=== PATIENT | female | born 1980 ===

== ENCOUNTER 2016-12-20 12:59 | Emergency (ER) | payer MEDICAID, SELFPAY ==
[2016-12-20 13:29] VITALS: BMI 34.3
--- NOTE | 2016-12-20 14:00 | OBDCSUM ---
Datetime: 12/20/2016 13:55 Discharged to, Provider: Home Follow up at, Provider: Giovani Minaya Disch Instr Activity: Normal activity Disch Instr Diet: Regular Discharge Instructions, Provider: Routine instructions given Discharge Time: 12/20/2016 13:55 Follow up in weeks, Provider: wilfredo hernandez as scheduled Disch Referrals: None Discharge Diagnosis Prov Other: +FM
--- NOTE | 2016-12-20 14:53 | OBHP ---
Datetime: 12/20/2016 13:54 IP Adm Impression: Term, intrauterine ; No Active Labor IP Admit Plan: Discharge home Admit Comment, IP Provider: 36yo IUP at 40w c/o decreased FM this morning. Since being plac e on EFM +FM. No CTX. No VB. No SROM. She has sono scheduled for tmrw at [facility]. PNC: [facility] - cleft lip. PMH: PSH NKA PSoH POBGYNH: no STD; x 1 A: IUP at 40w +FM reactive NST PLAN: Labor instructions (kyrgyz) Sono tmrw f/u [facility] this thurs as scheduled Pelvic Type - PN: Not Done Extremities - PN: Normal Abdomen - PN: Normal Back - PN: Normal Breast - PN: Not Done Lungs - PN: Normal Heart - PN: Normal Thyroid - PN: Normal Neurologic - PN: Normal HEENT - PN: Normal General - PN: Normal FHR - Baseline A Provider: 140 Contraction Comments Provider: 0 Comments, ACOG Physical Exam: ROS: General: no fatigue no weakness HEENT: no SYED; no visual dist CV: no CP; no palpitaions Resp: no OSb; no cough GI: No N/V/D : No F/U/D MS: no joint pain Pool Provider: Negative IP Hx Assessment: The History has been Reviewed and is Current EGA AdmitDate IP: 39.6 IP Chief Complaint: Decreased movement NICHD Variability Prov Fetus A: Moderate 6-25bpm NICHD Accel Fetus A IP Provider: 15X15 FHR Category Provider Fetus A: Category I NICHD Decel Fetus A IP Provider: None Genitourinary Exam: Normal DTRs - PN: Normal
== END 2016-12-20 13:57 | disposition home or self-care (01) ==
LOC: H.EROB2 12:59
DX: O47.1 False labor at or after 37 completed weeks of gestation (principal); O48.0 Post-term pregnancy; Z3A.40 40 weeks gestation of pregnancy

== ENCOUNTER 2016-12-21 06:07 | Inpatient (IN) | payer MEDICAID, SELFPAY ==
[2016-12-21 06:56] VITALS: BMI 37.4
[2016-12-21] MEDS: Lactated Ringer's 1,000 ML IV SCH ×2 (07:00→08:00)
[2016-12-21 07:16] LABS: HEMATOCRIT 38.5 % (34.0-47.0); MEAN CELL VOLUME 78.1 fl (81.0-99.0); MEAN CORPUSCULAR HEMOGLOBIN 25.7 pg (27.0-31.0); MEAN CORPUSCULAR HGB CONC 32.9 g/dL (33.0-37.0); RED CELL DISTRIBUTION WIDTH 16.1 % (11.5-14.5); WHITE BLOOD COUNT 9.2 K/uL (4.8-10.8)
[2016-12-21] MEDS ORDERED: Fentanyl/Bupivacaine HCl 250 ML EPI ONE (07:19)
[2016-12-21] MEDS ORDERED: Bupivacaine HCl 0.25% PF (10 ml) Inj ONE (07:19)
--- NOTE | 2016-12-21 07:25 | OBADHP ---
Datetime: 12/21/2016 07:00 Admit Comment, IP Provider: IUP at 40w c/o ctx since 2am. No SROM. no VB. +FM. She had PNC at [facility]/Dr Calvert chart reviewed followed for cleft lip/palate - declined amnio GBS neg PMH: obese PSH denies NKA PSoH denies smopking EOTH drugs POBGYNH: x 1 (7lb) A: IUP at 40w/active labor Hx Cleft Lip/palate obese P: Admit IVF and labs pain managemnt, labor, delivery and discussed. Nursery was notified Pelvic Type - PN: Adequate Extremities - PN: Normal Abdomen - PN: Normal Back - PN: Normal Breast - PN: Not Done Lungs - PN: Normal Heart - PN: Normal Thyroid - PN: Normal Neurologic - PN: Normal HEENT - PN: Normal General - PN: Abnormal Presentation-Admit: Vertex FHR - Baseline A Provider: 150 Membranes, Provider: Intact Comments, ACOG Physical Exam: ROS: General: no fatigue no weakness HEENT: no SYED; no visual dist CV: no CP; no palpitaions Resp: no OSb; no cough GI: No N/V/D : No F/U/D MS: no joint pain Pool Provider: Negative IP Hx Assessment: The History has been Reviewed and is Current IP Chief Complaint: Uterine contractions NICHD Variability Prov Fetus A: Moderate 6-25bpm NICHD Accel Fetus A IP Provider: 15X15 FHR Category Provider Fetus A: Category I NICHD Decel Fetus A IP Provider: None Dilatation, Provider: 5 Effacement, Provider: 75 Station, Provider: -2 Genitourinary Exam: Normal DTRs - PN: Normal EGA AdmitDate IP: 40.0 IP Adm Impression: Term, intrauterine ; Active labor IP Admit Plan: Admit to unit; Initiate labor protocol Datetime: 12/20/2016 13:54 Contraction Comments Provider: 0
[2016-12-21] MEDS ORDERED: Oxytocin 30 units/LR 500ML 30 U/500 ML BAG IV ONE ×2 (07:26→14:10)
[2016-12-21] MEDS ORDERED: Lidocaine 1% Inj (20ml) ONE (07:28)
[2016-12-21 07:54] VITALS: BP 147/71; PULSE 116; RESP 19; TEMP 99.1; O2SAT 97
[2016-12-21] MEDS ORDERED: Lactated Ringer's 1,000 ML IV SCH ×2 (08:40→09:00)
--- NOTE | 2016-12-21 14:52 | OBDS ---
MATERNAL INFORMATION Provider Comments: Delivered live baby boy at 2:04 PM. He was bulb suctioned on the perineum and tra nsferred to maternal chest. The cord was clamped and cut and 3 vessels were noted cord blood was obta ined and sent to the lab. Placenta was delivered at 2:09 PM intact. Estimated blood loss was 250 mL. A first-degree vaginal laceration was repaired with 2-0 repeat. The mother tolerated the procedure we ll and the baby went to level II with Apgars of 9 and 9 weighing 3840 g. The pediatricians were in at tendance the patient was known to have a history of cleft left and palate. LABOR SUMMARY EDC: 12/21/2016 00:00 No. Babies in Womb: 1 LABOR INFORMATION Group B Beta Strep: Negative MEMBRANES Membranes Rupture Method: Artificial Rupture of Membranes: 12/21/2016 08:30 Amniotic Fluid Color: Light Meconium Amniotic Fluid Amount: Small Amniotic Fluid Odor: Normal VAGINAL DELIVERY Episiotomy: None Laceration Extension: First Degree Laceration Type: Vaginal Laceration Repair Note: repaired with 2.0 rapide Sponge Count Correct: Yes Sharps Count Correct: Yes
[2016-12-21] MEDS ORDERED: Oxycodone/Acetaminophen 5/325 mg Tab PO PRN ×2 (16:20)
[2016-12-22 23:44] LABS: HEMATOCRIT 33.6 % (34.0-47.0); MEAN CELL VOLUME 78.4 fl (81.0-99.0); MEAN CORPUSCULAR HEMOGLOBIN 25.6 pg (27.0-31.0); MEAN CORPUSCULAR HGB CONC 32.6 g/dL (33.0-37.0); RED CELL DISTRIBUTION WIDTH 16.4 % (11.5-14.5); WHITE BLOOD COUNT 8.4 K/uL (4.8-10.8)
--- NOTE | 2016-12-23 09:06 | OBDCSUM ---
Datetime: 12/23/2016 05:39 Discharged to, Provider: Home Follow up at, Provider: [facility]BGY[facility] Disch Instr Activity: Normal activity Disch Instr Diet: Regular Discharge Instructions, Provider: Routine instructions given Discharge Diagnosis, Provider: Term Delivered Discharge Time: 12/23/2016 09:00 Follow up in weeks, Provider: 6 weeks Disch Referrals: None Disch Activity Restrictions: No sexual activity; Nothing in vagina - [place], tampons, douche Discharge Comment, Provider: 36 y/o s/p on 12/21/16@ 14:04 Delivered baby boy on 12/21/16 @14:04 Weight: 8lb7oz 9/9 , w/ cleft lip has been transfered t o [facility] Patient doing well, stable for discharge. Prescription given for pain Encourage PNV 1 tab PO once daily Ibuprofen 600 mg 1 tab PO Q6h prn for mild to moderate pain Ambulate w/ caution, nothing in vagina, no heavy lifting, if excessive bleeding or fever without r elief from Ibuprofen go to ED F/U with OBGYN in 6 weeks OB Hospitalist oncjaleesa...Pt seen on rounds 8am. Agree with PGY1 note MAHNDO discharge home Contraception after Delivery: Undecided
--- NOTE | 2016-12-23 09:06 | OBPPN ---
Datetime: 12/23/2016 05:37 PP Pain Prov: Within normal limits PP Nausea Prov: Denies PP Flatus Prov: Yes PP BM Prov: No PP Heart Prov: Normal PP Lungs Prov: Normal PP Abdomen/Uterus Prov: Normal PP Lochia Prov: Normal PP Extremities Prov: Normal PP C/S Incision Prov: Not Applicable PP Progress Prov: Not Applicable PP Comments Phys Exam Prov: Fundus: Firm and below umbilicus PP Impression Prov: Normal progression PP Plan Prov: Continue present management; Discharge PP Progress Note Prov: 36 yo , seen and examined bedside. Patient denies any overnight events. She reports mild pelvic pain controlled w/ pain meds. OOB/Ambulating w/o dizziness. Tolerating PO diet well. Lochia is less than menses in volume. Voiding freely w/ no blood noted. Reports passin g gas but has not had a bowl movement . Denies fevers, chills, n/v/d, CP/SOB, lightheadedness and ketty f pain. Assessment: 36 yo, s/p on 12/21/16 @ 14:04 tolerating pain w/ medication, tolerating or al intake, adequate urine output, doing well on PPD#2 Plan: - Patient stable to go home - Mild/mod pain PRN: Ibuprofen 600mg PO Q6 PRN pain -Encourage breast feeding and ambulation Jill Camp M.D. OB Hospitalist oncall...Pt seen on rounds 8am. Agree with PGY1 note MAHNDO discharge home IP PP Procedures: None Vital Signs Provider PP: Reviewed; Within Normal Limits
== END 2016-12-23 12:40 | disposition home or self-care (01) | DRG 373 ==
LOC: H.EROB2 06:07 → H.L&D 06:56 → H.OB/GYN 22:46
PROVIDERS: ADMIT Obstetrics & Gynecology; ATTEND Obstetrics & Gynecology
PROC: 0HQ9XZZ Repair Perineum Skin, External Approach (ICD-10-PCS; principal; 2016-12-21)
PROC: 10E0XZZ Delivery of Products of Conception, External Approach (ICD-10-PCS; 2016-12-21)
PROC: 4A1HXCZ Monitoring of Products of Conception, Cardiac Rate, External Approach (ICD-10-PCS; 2016-12-21)
DX: O71.4 Obstetric high vaginal laceration alone (principal); Z37.0 Single live birth; Z3A.39 39 weeks gestation of pregnancy

== ENCOUNTER 2016-12-27 20:43 | Inpatient (IN) | payer MEDICAID, SELFPAY ==
[2016-12-27 20:43] VITALS: BMI 37.4
[2016-12-27] MEDS ORDERED: Labetalol 5mg/ml (4ml) ONE ×2 (22:01→23:32)
[2016-12-27 22:07] LABS: BASO # 0.1 K/uL (0.0-0.2); BASO % 0.8 % (0.0-2.0); EOS # 0.2 K/uL (0.0-0.7); EOS % 2.4 % (0.0-4.0); HEMATOCRIT 38.8 % (34.0-47.0); LYMPH # 2.9 K/uL (1.0-4.3); LYMPH % 36.8 % (20.0-40.0); MEAN CELL VOLUME 79.5 fl (81.0-99.0); MEAN CORPUSCULAR HEMOGLOBIN 25.5 pg (27.0-31.0); MEAN CORPUSCULAR HGB CONC 32.1 g/dL (33.0-37.0); MEAN PLATELET VOLUME 7.7 fl (7.2-11.7); MONO # 0.6 K/uL (0.0-0.8); MONO % 7.4 % (0.0-10.0); NEUT # 4.2 K/uL (1.8-7.0); NEUT % 52.6 % (50.0-75.0); NRBC % 0.2 % (0.0-0.0); RED CELL DISTRIBUTION WIDTH 16.4 % (11.5-14.5)
[2016-12-27] MEDS: Labetalol 5mg/ml (4ml) IVP STA ×2 (22:10→22:26)
[2016-12-27 22:20] LABS: ALB/GLOB RATIO 1.1 (1.0-2.1); ALKALINE PHOSPHATASE 142 U/L (38-126); ALT/SGPT 33 U/L (9-52); AST/SGOT 22 U/L (14-36); BILIRUBIN,TOTAL 0.3 mg/dl (0.2-1.3); BLOOD UREA NITROGEN 18 mg/dl (7-17); CARBON DIOXIDE 23 mmol/L (22-30); CHLORIDE 107 mmol/L (98-107); GFR AFRICAN-AMERICAN > 60; GLUCOSE,RANDOM 87 mg/dL (65-105); SODIUM 140 mmol/l (132-148); TOTAL PROTEIN 7.5 G/DL (6.3-8.2)
[2016-12-27] MEDS ORDERED: Labetalol 5 mg/ml Inj 20ML IVP STA (22:25)
--- NOTE | 2016-12-27 22:27 | ED PDOC ---
HPI: Hypertension/Hypotension Time Seen by Provider: 12/27/16 21:39 Chief Complaint (Nursing): High Blood Pressure Chief Complaint (Provider): headache, high blood pressure History Per: Patient History/Exam Limitations: no limitations Severity: Moderate Exacerbating Factor(s): Pos: None Additional Complaint(s): 36yo female now approx 7 days post s/p 40wks, states uncomplicated but last 2 weeks had elevated BP no meds initiated. Baby now at [facility] for cleft lip. Last 2 days has had worsening headache mostly right sided, edema of b/l feet. Also notes mild chest discomfort. Denies SOB, orthopnea, bruising or significant vag bleeding. Normal urination. Went to PMD Dr Luis today for headache and told BP was elevated to come to ER. States she did receive an epidural but the headache is non-positional. First unremarkable. Past Medical History Reviewed: Historical Data, Nursing Documentation, Vital Signs Vital Signs: Last Vital Signs Temp 98.0 F 12/27/16 21:11 Pulse 81 12/27/16 21:11 Resp 16 12/27/16 21:11 BP 151/108 H 12/27/16 21:11 Pulse Ox 100 12/27/16 21:11 - Medical History PMH: No Chronic Diseases - Surgical History Surgical History: No Surg Hx - Family History Family History: States: Unknown Family Hx - Living Arrangements Living Arrangements: With Family - Social History Current smoker - smoking cessation education provided: No - Home Medications Home Medications: Ambulatory Orders Medication Instructions Recorded Vit No.126/Iron/Folic 1 tab PO DAILY MDD 1 tab 12/21/16 [Prenavite] Ibuprofen [Motrin] 600 mg PO Q6 PRN #30 tab 12/22/16 - Allergies Allergies/Adverse Reactions: Allergies Allergy/AdvReac Type Severity Reaction Status Date / Time No Known Allergies Allergy Verified 12/27/16 21:11 Review of Systems Constitutional: Negative for: Fever, Chills Cardiovascular: Positive for: Chest Pain, Palpitations. Negative for: Orthopnea Respiratory: Negative for: Cough, Shortness of Breath Gastrointestinal: Negative for: Nausea, Vomiting Genitourinary Female: Positive for: Vaginal Bleeding, Pelvic Pain. Negative for : Dysuria, Frequency Musculoskeletal: Negative for: Neck Pain, Shoulder Pain Skin: Negative for: Rash, Lesions Neurological: Positive for: Headache, Dizziness. Negative for: Weakness, Numbness Physical Exam - Reviewed Nursing Documentation Reviewed: Yes Vital Signs Reviewed: Yes - Physical Exam Appears: Positive for: Well, Non-toxic, No Acute Distress Head Exam: Positive for: ATRAUMATIC, NORMAL INSPECTION, NORMOCEPHALIC Skin: Positive for: Normal Color, Warm, DRY Eye Exam: Positive for: EOMI, Normal appearance, PERRL ENT: Positive for: Normal ENT Inspection Neck: Positive for: Normal, Painless ROM Cardiovascular/Chest: Positive for: Regular Rate, Rhythm Respiratory: Positive for: CNT, Normal Breath Sounds Gastrointestinal/Abdominal: Positive for: Bowel Sounds, Soft. Negative for: Tenderness, Guarding Back: Positive for: Normal Inspection Extremity: Positive for: Normal ROM Neurologic/Psych: Positive for: Alert, Oriented. Negative for: Motor/Sensory Deficits - Laboratory Results Result Diagrams: 12/27/16 21:55 12/27/16 21:55 - ECG O2 Sat by Pulse Oximetry: 100 Medical Decision Making Medical Decision Making: Workup initiated for preeclampsia/ hypertensive urgency. Labetolol 10mg ordered IV. Labs, CT brain ordered. D.w OB educational aide Dr Medrano, if protein in urine start mag sulfate. Admit hospitalist , [employer]NA[employer] to consult.
[2016-12-27] MEDS ORDERED: Labetalol 5mg/ml (4ml) IVP STA (22:35)
--- NOTE | 2016-12-27 23:06 | CT ---
EXAM: CT Head Without Intravenous Contrast CLINICAL HISTORY: 36 years old, female; Pain; Headache; Headache not specified; Additional info: / htn/ headache TECHNIQUE: Axial computed tomography images of the head/brain without intravenous contrast. This CT exam was performed using one or more of the following dose reduction techniques: automated exposure control, adjustment of the mA and/or kV according to patient size, and/or use of iterative reconstruction technique. Coronal and sagittal reformatted images were created and reviewed. COMPARISON: No relevant prior studies available. FINDINGS: Brain: No intracranial hemorrhage. No mass. No definite edema. Ventricles: No hydrocephalus. Bones/joints: No acute fracture. Soft tissues: Unremarkable. Sinuses: No acute sinusitis. Mastoid air cells: No mastoid effusion. Orbits: Unremarkable as visualized. IMPRESSION: 1. No acute intracranial abnormality. 2. Incidental/non-acute findings are described above.
[2016-12-27 23:52] LABS: RBC URINE 158 /hpf (0-3); URINE BACTERIA RARE (<OCC); URINE BILIRUBIN NEGATIVE (NEGATIVE); URINE BLOOD LARGE (NEGATIVE); URINE COLOR YELLOW (YELLOW); URINE GLUCOSE (UA) NEG (Normal); URINE KETONE NEGATIVE (NEGATIVE); URINE LEUKOCYTE ESTERASE SMALL Leu/uL (Negative); URINE PROTEIN NEGATIVE (NEGATIVE); WBC URINE 4 /hpf (0-5)
[2016-12-28] MEDS ORDERED: Labetalol 5mg/ml (4ml) IVP STA (00:05)
--- NOTE | 2016-12-28 00:45 | CP.PCM.HP ---
History of Present Illness - History of Present Illness History of Present Illness: Chief Complaint: headache, high blood pressure HPI: 36 year old female , gave about a week ago here at [facility] without complications. Patient was at doctors office with and her BP was found to be elevated. She was instructed to come to ER. This was also associated with a moderate R sided headache sharp and throbbing in nature, nonradiating. Patient was given Labetalol in ER x4, will start PO. ER called OBGYN, per chart review, no protein in urine, no Mg at this time. Discussed with ER physician. Other than BP 155/100, vitals stable, she is in no acute distress. ROS: Per HPI, all other systems reviewed negative by me PMD: Dr. Luis PMH: none PSH: denies FH: denies SH: denies tobacco, etoh, ivdu ALLERGIES: NKDA MEDICATIONS: reviewed and as below Surrogate Decision Maker: in chart GENERAL APPEARANCE: Well developed, well nourished, alert and cooperative, and appears to be in no acute distress. HEENT: normocephalic, atraumatic PERRL, EOMI. Vision is grossly intact. External auditory canals clear, hearing grossly intact. No nasal discharge. Oral cavity and pharynx normal. No inflammation, swelling, exudate, or lesions. NECK: Neck supple, non-tender without lymphadenopathy, masses or thyromegaly. CARDIAC: Normal S1 and S2. No S3, S4 or murmurs. Rhythm is regular. LUNGS: Clear to auscultation and percussion without rales, rhonchi, wheezing or diminished breath sounds. ABDOMEN: Positive bowel sounds. Soft, nondistended, nontender. No guarding or rebound. No masses. BACK: Examination of the spine reveals no spinal deformity, symmetry of spinal muscles, EXTREMITIES: No significant deformity or joint abnormality. No edema. NEUROLOGICAL: Strength and sensation symmetric and intact throughout. Reflexes 2 + throughout. SKIN: Skin normal color, texture and turgor with no lesions or eruptions. PSYCHIATRIC: The patient was oriented to person, place, and time. Normal affect. LABS: 12/27/16 21:55 12/27/16 21:[address] head unremarkable EKG NSR, no acute infarct or ischemia appreciated ASSESSMENT AND PLAN 36 year old female , gave about a week ago here at [facility] without complications. Patient was at doctors office with and her BP was found to be elevated. She was instructed to come to ER. This was also associated with a moderate R sided headache sharp and throbbing in nature, nonradiating. Patient was given Labetalol in ERx4, will start PO. ER called OBGYN, per chart review, no protein in urine, no Mg at this time. Discussed with ER physician. Other than BP 155/100, vitals stable, she is in no acute distress. Hypertensive Urgency OBGYN on consult, unlikely preeclampsia Upon reevaluation BP 153/97 Start Labetalol 200 mg PO q12, increase daily as necessary PRN Labetalol 10 mg IV for SBP >160 monitor BP DVT prophylaxis SCDs Present on Admission - Present on Admission Any Indicators Present on Admission: No Past Patient History - Past Social History Smoking Status: Never Smoked - PSYCHIATRIC Hx Substance Use: No - SURGICAL HISTORY Hx Surgeries: No - ANESTHESIA Hx Anesthesia: No Meds Allergies/Adverse Reactions: Allergies Allergy/AdvReac Type Severity Reaction Status Date / Time No Known Allergies Allergy Verified 12/27/16 21:11 Results - Vital Signs Recent Vital Signs: Last Vital Signs Temp 98.0 F 12/27/16 21:11 Pulse 74 12/27/16 22:05 Resp 16 12/27/16 21:11 BP 153/97 H 12/27/16 23:39 Pulse Ox 100 12/27/16 22:57 - Labs Result Diagrams: 12/27/16 21:55 12/27/16 21:55
[2016-12-28] MEDS ORDERED: Labetalol 5 mg/ml Inj 20ML IVP PRN (00:50)
[2016-12-28] MEDS ORDERED: Labetalol 5mg/ml (4ml) IVP PRN (04:00)
--- NOTE | 2016-12-28 05:11 | CP.PCM.CON ---
<ConradoJose Mariachad - Last Filed: 12/28/16 06:52> History of Present Illness - History of Present Illness History of Present Illness: OBGYN CONSULT for Dr. Susan Medrano 36 YO F PPD8 s/p @ 40 weeks, w/ an uncomplicated was admitted last night for hypertension and headache last night. Patient states that she had increase in BP in last 2 weeks of but didn't require medication. On PPD2 on discharge she was 136/72. - Patient went to her PMD Dr. Luis yesterday for a right sided headache and b/l edema of her feet which had worsened since . She had also had vague chest pain, which was non radiating and did not worsen with excursion. Today the patient denies any chest pain currently. - Her headache is a throbbing unilateral right sided, with no blurring of vision or weakness, headache is aggravated with movement and partially relieved with rest and Tylenol. 6/10 in intensity. Denies any dizziness, nausea or vomiting. She does not associate any excess stress which has been on her mind other then her child which is at [facility] since the delivery for a repair of the cleft lip. Denies any right upper quadrant pain or any other abdominal pain. Patient did receive a epidural but her headache is non positional. Denies any h/o migraines. Denies any flashes of light or aura. - Denies any increase in vaginal bleeding. Her vaginal bleeding is scant and has been decreasing since the delivery. - Blood pressure was checked at a bedside this morning and was 132/89. CT scan of the head did not show any intracranial bleeding. PMH: none PSH: none FH: none SH: Denies tobacco, alcohol, ivdu Allergies: NKDA PMD: Dayami Luis Review of Systems - Review of Systems All systems: reviewed and no additional remarkable complaints except Past Patient History - Past Medical History & Family History Past Medical History?: No - Past Social History Smoking Status: Never Smoked - CARDIAC Hx Cardiac Disorders: No - PULMONARY Hx Respiratory Disorders: No - NEUROLOGICAL Hx Neurological Disorder: No - HEENT Hx HEENT Problems: No - RENAL Hx Chronic Kidney Disease: No - ENDOCRINE/METABOLIC Hx Endocrine Disorders: No - HEMATOLOGICAL/ONCOLOGICAL Hx Blood Disorders: No - INTEGUMENTARY Hx Dermatological Problems: No - MUSCULOSKELETAL/RHEUMATOLOGICAL Hx Musculoskeletal Disorders: No Hx Falls: No - GASTROINTESTINAL Hx Gastrointestinal Disorders: No - GENITOURINARY/GYNECOLOGICAL Hx Genitourinary Disorders: No - PSYCHIATRIC Hx Psychophysiologic Disorder: No Hx Substance Use: No - SURGICAL HISTORY Hx Surgeries: No - ANESTHESIA Hx Anesthesia: Yes Hx Anesthesia Reactions: No Meds Allergies/Adverse Reactions: Allergies Allergy/AdvReac Type Severity Reaction Status Date / Time No Known Allergies Allergy Verified 12/27/16 21:11 - Medications Medications: Current Medications Labetalol HCl (Trandate) 200 mg PO Q12 KAY Last Admin: 12/28/16 02:08 Dose: 200 mg Labetalol HCl (Trandate) 10 mg IVP Q6 PRN PRN Reason: FOR SBP > 170 Physical Exam - Constitutional Appears: No Acute Distress - Head Exam Head Exam: ATRAUMATIC, NORMAL INSPECTION, NORMOCEPHALIC Additional comments: No tenderness over frontal or maxillary sinus region. - Eye Exam Eye Exam: EOMI, Normal appearance, PERRL. absent: Nystagmus Pupil Exam: NORMAL ACCOMODATION, PERRL - ENT Exam ENT Exam: Mucous Membranes Moist - Neck Exam Neck exam: Positive for: Full Rom, Normal Inspection. Negative for: Tenderness - Respiratory Exam Respiratory Exam: Clear to Auscultation Bilateral, NORMAL BREATHING PATTERN. absent: Decreased Breath Sounds, Rales, Rhonchi - Cardiovascular Exam Cardiovascular Exam: REGULAR RHYTHM, +S1, +S2. absent: Systolic Murmur - GI/Abdominal Exam GI & Abdominal Exam: Normal Bowel Sounds, Soft - Extremities Exam Extremities exam: Positive for: pedal edema Additional comments: 1+ pedal edema over right ankle - Neurological Exam Neurological exam: Alert, CN II-XII Intact, Normal Gait, Oriented x3, Reflexes Normal - Skin Skin Exam: Normal Color, Warm Results - Vital Signs Recent Vital Signs: Last Vital Signs Temp 98.3 F 12/28/16 01:20 Pulse 70 12/28/16 02:08 Resp 18 12/28/16 01:27 BP 149/94 H 12/28/16 02:08 Pulse Ox 97 12/28/16 01:20 - Labs Result Diagrams: 12/27/16 21:55 12/27/16 21:55 Assessment & Plan - Assessment and Plan (Free Text) Assessment: 36 YO F PPD8 s/p @ 40 weeks, w/ an uncomplicated was admitted last night for hypertension and headache last night. 1) Hypertensive Urgency (Controlled) - Continue telometry - Continue medical team recommendation w/ Labetolol - Tylenol for headache PRN - Head CT: no intercranial bleeding noted. - U/A did not show increase in proteins. - Unlikely preclampsia in origin. * Case seen and discussed w/ Dr. Medrano. <Dionicio Medrano - Last Filed: 12/28/16 07:29> History of Present Illness - History of Present Illness History of Present Illness: OB Hospitalist on-call. This patient was seen and examined by me this morning on rounds. She feels less SYED since starting medications. Agree with PGY1 note. MAHNDO Meds - Medications Medications: Current Medications Labetalol HCl (Trandate) 200 mg PO Q12 KAY Last Admin: 12/28/16 02:08 Dose: 200 mg Labetalol HCl (Trandate) 10 mg IVP Q6 PRN PRN Reason: FOR SBP > 170 Results - Vital Signs Recent Vital Signs: Last Vital Signs Temp 98.1 F 12/28/16 05:00 Pulse 71 12/28/16 05:00 Resp 20 12/28/16 05:00 BP 132/89 12/28/16 05:00 Pulse Ox 99 12/28/16 05:00 - Labs Result Diagrams: 12/27/16 21:55 12/27/16 21:55
[2016-12-28 08:12] VITALS: RESP 18
--- NOTE | 2016-12-28 09:55 | CP.PCM.DIS ---
Provider - Provider Date of Admission: 12/28/16 00:09 Attending physician: Yolanda Loza DO Consults: OB consult Time Spent in preparation of Discharge (in minutes): 15 Hospital Course - Lab Results Lab Results: Most Recent Lab Values WBC 8.0 K/uL (4.8-10.8) 12/27/16 21:55 RBC 4.88 Mil/uL (3.80-5.20) 12/27/16 21:55 Hgb 12.4 g/dL (12.0-16.0) 12/27/16 21:55 Hct 38.8 % (34.0-47.0) 12/27/16 21:55 MCV 79.5 fl (81.0-99.0) L 12/27/16 21:55 MCH 25.5 pg (27.0-31.0) L 12/27/16 21:55 MCHC 32.1 g/dL (33.0-37.0) L 12/27/16 21:55 RDW 16.4 % (11.5-14.5) H 12/27/16 21:55 Plt Count 420 K/uL (130-400) H D 12/27/16 21:55 MPV 7.7 fl (7.2-11.7) 12/27/16 21:55 Neut % (Auto) 52.6 % (50.0-75.0) 12/27/16 21:55 Lymph % (Auto) 36.8 % (20.0-40.0) 12/27/16 21:55 [place] % (Auto) 7.4 % (0.0-10.0) 12/27/16 21:55 Eos % (Auto) 2.4 % (0.0-4.0) 12/27/16 21:55 Baso % (Auto) 0.8 % (0.0-2.0) 12/27/16 21:55 Neut # 4.2 K/uL (1.8-7.0) 12/27/16 21:55 Lymph # 2.9 K/uL (1.0-4.3) 12/27/16 21:55 [place] # 0.6 K/uL (0.0-0.8) 12/27/16 21:55 Eos # 0.2 K/uL (0.0-0.7) 12/27/16 21:55 Baso # 0.1 K/uL (0.0-0.2) 12/27/16 21:55 Sodium 140 mmol/l (132-148) 12/27/16 21:55 Potassium 4.0 MMOL/L (3.6-5.0) 12/27/16 21:55 Chloride 107 mmol/L (98-107) 12/27/16 21:55 Carbon Dioxide 23 mmol/L (22-30) 12/27/16 21:55 Anion Gap 15 (10-20) 12/27/16 21:55 BUN 18 mg/dl (7-17) H 12/27/16 21:55 Creatinine 0.6 mg/dL (0.7-1.2) L 12/27/16 21:55 Est GFR ( Amer) > 60 12/27/16 21:55 Est GFR (Non-Af Amer) > 60 12/27/16 21:55 Random Glucose 87 mg/dL (65-105) 12/27/16 21:55 Calcium 9.0 mg/dL (8.4-10.2) 12/27/16 21:55 Total Bilirubin 0.3 mg/dl (0.2-1.3) 12/27/16 21:55 AST 22 U/L (14-36) 12/27/16 21:55 ALT 33 U/L (9-52) 12/27/16 21:55 Alkaline Phosphatase 142 U/L (38-126) H 12/27/16 21:55 Total Protein 7.5 G/DL (6.3-8.2) 12/27/16 21:55 Albumin 4.0 g/dL (3.5-5.0) 12/27/16 21:55 Globulin 3.5 gm/dL (2.2-3.9) 12/27/16 21:55 Albumin/Globulin Ratio 1.1 (1.0-2.1) 12/27/16 21:55 Urine Color Yellow (YELLOW) 12/27/16 23:37 Urine Clarity Clear (Clear) 12/27/16 23:37 Urine pH 6.0 (5.0-8.0) 12/27/16 23:37 Ur Specific [place] 1.021 (1.003-1.030) 05/23/17 23:37 Urine Protein Negative mg/dL (NEGATIVE) 12/27/16 23:37 Urine Glucose (UA) Neg mg/dL (Normal) 12/27/16 23:37 Urine Ketones Negative mg/dL (NEGATIVE) 12/27/16 23:37 Urine Blood Large (NEGATIVE) 12/27/16 23:37 Urine Nitrate Negative (NEGATIVE) 12/27/16 23:37 Urine Bilirubin Negative (NEGATIVE) 12/27/16 23:37 Urine Urobilinogen 2.0 mg/dL (0.2-1.0) H 12/27/16 23:37 Ur Leukocyte Esterase Small [place]/uL (Negative) 12/27/16 23:37 Urine RBC (Auto) 158 /hpf (0-3) H 12/27/16 23:37 Urine Microscopic WBC 4 /hpf (0-5) 12/27/16 23:37 Ur Squamous Epith Cells 2 /hpf (0-5) 12/27/16 23:37 Urine Bacteria Rare (<OCC) 12/27/16 23:37 - Hospital Course Hospital Course: 36 year old female , gave about a week ago here at [facility] without complications. Patient was at doctors office with and her BP was found to be elevated. She was instructed to come to ER. This was also associated with a moderate R sided headache sharp and throbbing in nature, nonradiating. Patient was given Labetalol in ERx4 and started PO. OBGY was consulted and recommended observation for uncontrolled HTN. CT head showed no acute pathology and blood work up CBC and CMp were within normal parameters. She was placed under observation in telemetry and started on labetalol 200 mg po BID. Her BP better controlled with current regiment 132/ 89 and her headache resolved. Will discharge patient home wuith labetalol PO. Patient to follow up with her OB in 1 week Discharge Exam - Head Exam Head Exam: ATRAUMATIC, NORMAL INSPECTION, NORMOCEPHALIC - Eye Exam Eye Exam: EOMI, Normal appearance, PERRL Pupil Exam: NORMAL ACCOMODATION - ENT Exam ENT Exam: Mucous Membranes Moist, Normal Exam - Neck Exam Neck exam: Full Rom, Normal Inspection - Respiratory Exam Respiratory Exam: Clear to PA & Lateral, NORMAL BREATHING PATTERN. absent: Rales, Rhonchi, Wheezes - Cardiovascular Exam Cardiovascular Exam: REGULAR RHYTHM, RRR, +S1, +S2. absent: JVD - GI/Abdominal Exam GI & Abdominal Exam: Normal Bowel Sounds, Soft. absent: Distended, Guarding, Rebound, Tenderness - Rectal Exam Rectal Exam: Deferred - Extremities Exam Extremities exam: normal capillary refill, normal inspection, pedal pulses present - Back Exam Back exam: NORMAL INSPECTION - Neurological Exam Neurological exam: Alert, CN II-XII Intact, Oriented x3, Reflexes Normal - Psychiatric Exam Psychiatric exam: Normal Affect, Normal Mood - Skin Skin Exam: Dry, Intact, Normal Color, Warm Discharge Plan - Discharge Medications Prescriptions: Labetalol [Trandate] 200 mg PO BID #60 tab - Follow Up Plan Condition: STABLE Disposition: HOME/ ROUTINE Patient education suggested?: Yes Instructions: Heart Healthy Diet (DC)
[2016-12-28 12:23] VITALS: BP 121/76; PULSE 73; TEMP 98.3; O2SAT 100
--- NOTE | 2016-12-30 19:04 | CARD ---
APPROVED REPORT EKG Measurement Heart [id number] <Conclusion> Normal sinus rhythm Normal ECG
== END 2016-12-28 14:39 | disposition home or self-care (01) | DRG 376 ==
LOC: H.ER 20:43 → H.ERHOLD 12-28 00:09 → H.TEL 12-28 01:20
PROVIDERS: ADMIT Student in an Organized Health Care Education/Training Program; ATTEND Student in an Organized Health Care Education/Training Program
DX: O13.5 Gestational [pregnancy-induced] hypertension without significant proteinuria, complicating the puerperium (principal); I16.0 Hypertensive urgency